=== PATIENT | female | born 1980 | race Caucasian/White ===

== ENCOUNTER 2021-12-04 14:00 | Outpatient (CLI) | payer OTHER | END 2021-12-04 14:02 | disposition home or self-care (01) | LOC: RAD 14:00 | PROVIDERS: ATTEND Orthopaedic Surgery | DX: M25.562 Pain in left knee (principal) ==

== ENCOUNTER 2023-01-23 09:10 | Outpatient (CLI) | payer OTHER | END 2023-01-23 09:18 | disposition home or self-care (01) | LOC: RX STUDY 09:10 | DX: K59.01 Slow transit constipation (principal) ==